=== PATIENT | female | born 1940 | race Caucasian/White ===

== ENCOUNTER → 2018-04-21 08:17 | Outpatient (CLI) | payer MEDICARE, SELFPAY ==
[2018-04-21 11:49] LABS: Hemoglobin A1C 6.4 % (4.5-6.2)
== END ==
PROVIDERS: PCP Family Medicine; Visit Provider Family Medicine
DX: E11.9 Type 2 diabetes mellitus without complications (principal)
CPT/HCPCS: 36415; 83036

== ENCOUNTER 2018-06-24 00:58 | Outpatient (RCR) | payer MEDICARE, SELFPAY ==
[2018-06-24] MEDS: Normal Saline Flush 10 ML SYR IVP (11:42)
== END 2018-07-02 23:59 | disposition home or self-care (01) ==
LOC: INF 00:58
PROVIDERS: PCP Family Medicine; Visit Provider Family Medicine
DX: M81.0 Age-related osteoporosis without current pathological fracture (principal)
CPT/HCPCS: 96365; J3489

== ENCOUNTER 2018-10-08 10:56 | Outpatient (CLI) | payer MEDICARE, SELFPAY ==
[2018-10-08 13:07] LABS: Hemoglobin A1C 6.6 % (4.5-6.2)
== END 2018-10-08 11:16 ==
PROVIDERS: PCP Family Medicine; Visit Provider Family Medicine
DX: E11.9 Type 2 diabetes mellitus without complications (principal)
CPT/HCPCS: 36415; 83036

== ENCOUNTER 2018-12-09 13:08 | Outpatient (CLI) | payer MEDICARE, SELFPAY ==
--- NOTE | 2018-12-09 12:21 | DI.RAD_ITS ---
SYMPTOMS/DIAGNOSIS: LEFT RIB PAIN, R07.81, PLEURODYNIA LEFT RIBS TO INCLUDE CHEST X-RAY: Comparisons are 04/25/16 and 03/19/17. The heart size and pulmonary vasculature are within normal limits. The lungs are clear. No effusions or pneumothoraces are identified. No left rib abnormality is identified. No evidence of a left rib fracture is seen. There is an old compression deformity seen at T8. IMPRESSION: No acute pulmonary process.
== END 2018-12-09 13:28 ==
PROVIDERS: PCP Family Medicine; Visit Provider Family Medicine
DX: R07.81 Pleurodynia (principal)
CPT/HCPCS: 71046; 71100

== ENCOUNTER 2018-12-19 00:38 | Outpatient (CLI) | payer MEDICARE, SELFPAY ==
--- NOTE | 2018-12-19 10:35 | DI.US_ITS ---
SYMPTOMS/DIAGNOSIS: LUQ PAIN, R10.12 ABDOMINAL ULTRASOUND: The visualized liver parenchyma is normal in appearance except for possible tiny calcification in the right hepatic lobe. Note is made of cholelithiasis with multiple small gallstones. No biliary dilatation seen. The pancreas appears intact as visualized. The spleen is unremarkable in appearance. The kidneys appear normal with no evidence of hydronephrosis or nephrolithiasis. Incidental 22 mm left renal cyst noted. The abdominal aorta and IVC are of normal diameter. CONCLUSION: Cholelithiasis. No other significant findings.
== END 2018-12-19 00:58 ==
PROVIDERS: PCP Family Medicine; Visit Provider Family Medicine
DX: R10.12 Left upper quadrant pain (principal); K80.20 Calculus of gallbladder without cholecystitis without obstruction
CPT/HCPCS: 76700